=== PATIENT | male | born 1950 | race Caucasian/White ===

== ENCOUNTER 2016-12-25 05:34 | Outpatient (CLI) | payer BC ==
[~2016-12-25] VITALS: Ht 174 cm; Wt 74.8 kg
[2016-12-25] MEDS ORDERED: PANT40TA2 PO (11:27)
== END 2016-12-25 11:28 ==
LOC: PREOP 05:34
PROVIDERS: ATTEND Internal Medicine
DX: Z01.818 Encounter for other preprocedural examination (principal); Z12.11 Encounter for screening for malignant neoplasm of colon; K21.9 Gastro-esophageal reflux disease without esophagitis; R13.10 Dysphagia, unspecified

== ENCOUNTER 2016-12-27 07:11 | Day surgery (SDC) | payer BC ==
--- NOTE | 2016-11-03 15:41 | HISTORY AND PHYSICAL ---
DATE OF SERVICE: HISTORY OF PRESENT ILLNESS: The patient is a 66-year-old white male who presented to the office on 10/31/2016 for wellness evaluation. It had been 10 years since his last colonoscopy which was normal so he was set up for screening colonoscopy. He does report increased belching and palpitations associated with this, especially when he is full. If he eats smaller meals more frequently and does not 3-4 hours before bedtime symptoms are lessened. If he eats later at night he will wake up with belching and sensation of palpitations. He had had similar symptoms in the past that resolved after he underwent fundoplication in November 2014. Prior to that, he had undergone gastropexy due to a large hiatal hernia with either paraesophageal hernia or gastric volvulus. He had not required antacid therapy since the procedure and then had had resolution of the above symptoms up until several months ago. He has noted no bowel habit change. Has noted no bright red blood per rectum, melena and his weight has been stable. Appetite has been stable. PAST MEDICAL HISTORY: Other than that stated above is unremarkable. PAST SURGICAL HISTORY: As stated above as well as a left inguinal hernia repair in November of 2014 as well. FAMILY HISTORY: He is not aware of any family history of GI malignancy or polyps. SOCIAL HISTORY: He quit smoking many years ago with occasional social alcohol intake. He walks on a regular basis and is up to date on vaccinations except for flu shots. He previously has had Zostavax and Pneumovax. PHYSICAL EXAMINATION: GENERAL: Reveals a well appearing, normal weight white male in no acute distress. VITAL SIGNS: Blood pressure 136/80, weight is stable at 170 pounds. HEENT: Unremarkable. Ear canals are normal as are tympanic membranes. Head is normocephalic, atraumatic. NECK: Revealed no JVD, adenopathy or bruits. CARDIOVASCULAR: Regular rate and rhythm without murmur, S3 or S4. ABDOMEN: Soft, supple without mass, organomegaly or tenderness. RECTAL: Exam deferred to the time of colonoscopy. EXTREMITIES: Reveal no cyanosis, clubbing or edema. SKIN: Evaluation revealed no suspicious nevi. ASSESSMENT AND PLAN: Normal well male evaluation. We reviewed chemistry panel, lipid panel and PSA which are essentially normal with good cholesterol to HDL ratio of 3.2 and a high level of HDL at 71 with low triglyceride level of 99. He was set up for screening colonoscopy and diagnostic EGD on 11/15/2016. He was advised to initiate pantoprazole 40 mg daily as I suspect that he is having recurrent reflux symptoms which in this patient has presented with epigastric fullness and palpitation. If PPI therapy does not resolve his symptoms we will again look into cardiac issues. Job ID: [id number] DocumentID: [id number] Dictated Date: 11/03/2016 14:58:11 Coal Conveyor Operator Date: 11/03/2016 15:40:51 Dictated By: CORA ALLAN MD [facility]
--- NOTE | 2016-12-04 06:48 | HISTORY AND PHYSICAL ---
DATE OF SERVICE: DATE OF ADMISSION: 12/27/2016 ADDENDUM COLONOSCOPY HISTORY AND PHYSICAL HISTORY OF PRESENT ILLNESS: The patient is a gentleman who I initially saw on 10/31/2016 and was scheduled for colonoscopy within that month. He had to reschedule for 12/27/2016 and is being seen in the interim. He is also scheduled for EGD for diagnostic purposes. He has history of Jimmy fundoplication and has been having increased problems with dysphagia to solids only. He has had no melena or bright red blood per rectum or weight loss. He underwent laparoscopic Jimmy fundoplication in 11/2014. Previously he had had a large paraesophageal hernia with intermittent gastric volvulus. He has had some recurrence of dyspeptic symptoms as well as belching and chest pressure. He would also need a screening colonoscopy. In the interval since his last visit a month ago, he reports no change. He has no past cardiovascular or pulmonary history. PHYSICAL EXAMINATION: CHEST: Clear. CARDIOVASCULAR: Regular rate and rhythm without murmur, S3 or S4. ABDOMEN: Soft, supple without mass, organomegaly or tenderness. VITAL SIGNS: Blood pressure was 130/78 with a heart rate of 72 and regular. ASSESSMENT: The patient is set up for screening colonoscopy and diagnostic EGD for symptoms as noted above on 12/27/2016. He still has instructions and prescription for a Suprep kit. He will continue to avoid aspirin, nonsteroidal medication for at least 1 week prior to the procedure. Job ID: [id number] DocumentID: [id number] Dictated Date: 12/03/2016 21:07:39 Rn Surgical Pcu Date: 12/03/2016 22:03:12 Dictated By: CORA ALLAN MD
[~2016-12-27] VITALS: Ht 174 cm; Wt 74.8 kg
[~2016-12-27 07:11] MED LIST: PANT40TA2 PO
[2016-12-27] MEDS ORDERED: 1/2 NS IV SOLUTION 1,000 ML IV STA (07:19)
[2016-12-27] MEDS ORDERED: LIDOCAINE JELLY 2% (XYLOCAINE) 5 ML TUBE MM PRN (07:30)
[2016-12-27] MEDS ORDERED: HURRICAINE EXT TUBE (BENZOCAINE) XX PRN (07:30)
--- NOTE | 2016-12-27 07:36 | Pre-Op Note & Conscious Sedat ---
Pre-Operative Progress Note H&P Reviewed The H&P was reviewed, patient examined and no changes noted. Date H&P Reviewed: Dec 27, 2016 Time H&P Reviewed: 07:36 Conscious Sedation Pre-Proced ASA Class: 1 Airway Mallampati Classification: (makah appropriate class) I. II. III, IV Lungs Heart ASA score ASA 1: a normal healthy patient ASA 2: a patient with a mild systemic disease (mid diabetes, controlled hypertension, obesity ASA 3: a patient with a severe systemic disease that limits activity (angina , COPD, prior Myocardial infarction) ASA 4: a patient with an incapacitating disease that is a constant threat to life (CHF, renal failure) ASA 5: a moribund patient not expected to survive 24 hrs. (ruptured aneurysm) ASA 6: a declared brain patient whose organs are being harvested. For emergent operations, add the letter E after the classification Grade 1 Sedation Plan: Analgesia, Amnesia, Plan communicated to team members, Discussed options with patient/fam, Discussed risks with patient/fam Note The patient is an appropriate candidate to undergo the planned procedure, sedation, and anesthesia. The patient immediately re-assessed prior to indication. CORA ALLAN MD Dec 27, 2016 07:36
[2016-12-27] MEDS ORDERED: HURRICAINE EXT TUBE (BENZOCAINE) ONE (07:38)
[2016-12-27] MEDS ORDERED: LIDOCAINE JELLY 2% (XYLOCAINE) 5 ML TUBE ONE (07:38)
[2016-12-27] MEDS ORDERED: fentaNYL INJECTION 100 MCG/2 ML AMP ONE (07:38)
[2016-12-27] MEDS ORDERED: MIDAZOLAM 2 MG/2 ML (VERSED) VIAL ONE ×3 (07:38)
[2016-12-27] MEDS: fentaNYL INJECTION 100 MCG/2 ML AMP IVP PRN ×2 (07:53→08:15)
[2016-12-27] MEDS: MIDAZOLAM 2 MG/2 ML (VERSED) VIAL IVP PRN ×3 (07:55→08:27)
[2016-12-27 08:06] VITALS: BP 133/80
[2016-12-27 08:50] VITALS: BP 121/73
[2016-12-27 09:30] VITALS: BP 130/76
[2016-12-27 09:50] VITALS: BP 130/76
--- NOTE | 2016-12-27 18:28 | OPERATIVE REPORT ---
DATE OF SERVICE: PANENDOSCOPY SUMMARY Panendoscopy is performed for screening colonoscopy and diagnostic EGD due to dysphagia, previous history of gastropexy and Jimmy fundoplication. The patient was placed in the left lateral decubitus position. Prior to undergoing colonoscopy, digital rectal evaluation was performed. Prostate is unremarkable to digital inspection. No abnormalities, no additional inspection of anal canal or distal rectal vault. The colonoscope was then inserted into the rectum under direct visualization advanced to the cecum. The cecum was identified by identification of the ileocecal valve and cecal strap. Photographic documentation was obtained. Careful inspection was made as the colonoscope was withdrawn. The quality of the prep was good. FINDINGS: There is no evidence for external hemorrhoids. One small internal hemorrhoid complex was noted nonthrombosed. The rectum was unremarkable. Present at the rectosigmoid junction was a diminutive polyp which was biopsied and ablated and submitted for histopathology. There is no subsequent bleeding. Present in the proximal sigmoid colon were several diverticulum without evidence for diverticulitis. No other sigmoid abnormalities were appreciated. The descending colon, splenic flexure, transverse colon, hepatic flexure, ascending colon and cecum were unremarkable. ASSESSMENT: One diminutive polyp was removed from the rectosigmoid junction. Several small to medium size proximal sigmoid diverticulum were present without evidence for diverticulitis. As long as there are no surprises on histopathology, we will be abdicating consideration for repeat screening colonoscopy in 10 years. The patient is not aware of any family history for colon cancer. EGD evaluation was then performed. The endoscope was inserted in the oral cavity and under direct visualization, the esophagus was intubated. The endoscope was passed down the esophagus through the stomach and second portion of the duodenum. A careful inspection was made as the endoscope was withdrawn. FINDINGS: There was some tortuosity of the esophagus with a bend just proximal to the lower esophageal sphincter. No esophageal dilatation was noted.There are postoperative changes of gastropexy noted. Sutures still present with no surrounding ulceration or gastric erythema. There are postoperative changes of fundoplication intact. There was no evidence for erosive esophagitis with just a little more than average amount of pressure was able to easily traverse the lower esophageal sphincter area located at 41 cm from the incisoral orifice. No dilatation of the esophagus was noted The cardia, fundus and antrum of thestomach were unremarkable. The pylorus, the pyloric channel, the duodenal bulb and the second portion of duodenum were unremarkable as well. ASSESSMENT: Postoperative changes of gastropexy with fundoplication intact are noted. It is likely that the patient is having some pocketing of food in the distal esophagus, but it has been mild. It has caused him to eat more slowly, chew his food well and eat smaller amounts. There was no evidence to suggest erosive esophagitis. A biopsy from the Z-line was obtained as well as the antrum and submitted for histopathology. The patient was reassured and advised to continue current eating patterns with silver lining being that it forces him into a healthy lifestyle making it easier to maintain healthy weight. The patient voiced understanding and is agreeable. We will see him back for regular followup in 6 months. Job ID: [id number] DocumentID: [id number] Dictated Date: 12/27/2016 12:33:42 Snow Removal/Plowing Date: 12/27/2016 18:27:40 Dictated By: CORA ALLAN MD [facility]
== END 2016-12-27 09:50 | disposition home or self-care (01) ==
LOC: ENDO 07:11
PROVIDERS: ATTEND Internal Medicine
DX: Z12.11 Encounter for screening for malignant neoplasm of colon (principal); K62.1 Rectal polyp; K64.8 Other hemorrhoids; K57.30 Diverticulosis of large intestine without perforation or abscess without bleeding; R13.10 Dysphagia, unspecified; Z87.891 Personal history of nicotine dependence

== ENCOUNTER → 2018-03-17 | Outpatient (CLI) | payer BC ==
[~2018-03-17] MED LIST changes: +CATHETER FLUSH 10 ML SYR IV PRN; +DIATRIZOATE MEGLUM/SODIUM 37% 120 ML (GASTROGRAFIN) PO ONE; +IOHEXOL 350 MG/ML 100 ML (OMNIPAQUE 350) VIAL IV ONE; +NS 100 ML (IVPB) BAG IV ONE; +RECEIVED CONTRAST (Hold Metformin) IV SCH
--- NOTE | 2018-03-17 15:04 | Diagnostic Imaging Report ---
INDICATION: Prostate carcinoma. TECHNIQUE: Patient was administered 26.9 mCi technetium 99m MDP intravenously and whole-body imaging was performed after a three-hour delay. COMPARISON: No prior studies are available for comparison. FINDINGS: There is normal uptake of activity by the axial and appendicular skeleton. There is uptake by both kidneys with excretion into the urinary bladder. Mild uptake is identified at the first CMC joints of bilateral wrists compatible with degenerative change. Vague uptake involving left posterior approximately ninth rib is seen, indeterminate. No other suspicious foci are seen. IMPRESSION: Essentially unremarkable whole-body bone scan apart from minimal uptake involving left posterior approximately ninth rib. Continued followup is recommended. Dictated by: Dictated on workstation # [id number]
== END ==
LOC: CARD 10:38
PROVIDERS: ATTEND Urology
DX: C61 Malignant neoplasm of prostate (principal)
CPT/HCPCS: 78306

== ENCOUNTER 2018-08-12 05:36 | Outpatient (CLI) | payer BC ==
[~2018-08-12] VITALS: Ht 174 cm; Wt 79.4 kg
[~2018-08-12 05:36] MED LIST changes: -CATHETER FLUSH 10 ML SYR IV PRN; -DIATRIZOATE MEGLUM/SODIUM 37% 120 ML (GASTROGRAFIN) PO ONE; -IOHEXOL 350 MG/ML 100 ML (OMNIPAQUE 350) VIAL IV ONE; -NS 100 ML (IVPB) BAG IV ONE; -RECEIVED CONTRAST (Hold Metformin) IV SCH
[2018-08-12] MEDS ORDERED: PRED5TAB PO (12:04)
[2018-08-12] MEDS ORDERED: LEUP30KI IM (12:04)
[2018-08-12] MEDS ORDERED: [UNRECOGNIZED DRUG - OTHER] PO (12:04)
== END 2018-08-12 12:18 | disposition home or self-care (01) ==
LOC: PREOP 05:36
PROVIDERS: ATTEND Urology
DX: Z01.818 Encounter for other preprocedural examination (principal)

== ENCOUNTER 2018-08-19 06:04 | Day surgery (SDC) | payer BC ==
[~2018-08-19] VITALS: Ht 174 cm; Wt 78.5 kg
[2018-08-19] VITALS (8 sets, daily range): BP systolic 100–136; BP diastolic 61–84
[~2018-08-19 06:04] MED LIST changes: +LEUP30KI IM; +PRED5TAB PO; +[UNRECOGNIZED DRUG - OTHER] PO
--- OUTSIDE RECORDS SUMMARY | 2018-08-19 06:13 | XMS REPORT | Continuity of Care Document ---
Author Organization Unknown Address Unknown Allergies Active Description Code Type Severity Reaction Onset Reported/Identified Relationship to Patient Clinical Status Yes No Known Drug Allergies [id number] Drug Allergy Unknown N/A 08/12/2018 Medications There is no data. Problems Date Dx Coded Attending Type Code Diagnosis Diagnosed By 12/25/2016 CORA ALLAN MD Ot K21.9 GASTRO-ESOPHAGEAL REFLUX DISEASE WITHOUT 12/25/2016 CORA ALLAN MD Ot R13.10 DYSPHAGIA, UNSPECIFIED 12/25/2016 CORA ALLAN MD Ot Z01.818 ENCOUNTER FOR OTHER PREPROCEDURAL EXAMIN 12/25/2016 CORA ALLAN MD Ot Z12.11 ENCOUNTER FOR SCREENING FOR MALIGNANT NE 12/27/2016 CORA ALLAN MD Ot K57.30 DVRTCLOS OF LG INT W/O PERFORATION OR AB 12/27/2016 CORA ALLAN MD Ot K62.1 RECTAL POLYP 12/27/2016 CORA ALLAN MD Ot K64.8 OTHER HEMORRHOIDS 12/27/2016 CORA ALLAN MD Ot R13.10 DYSPHAGIA, UNSPECIFIED 12/27/2016 CORA ALLAN MD Ot Z12.11 ENCOUNTER FOR SCREENING FOR MALIGNANT NE 12/27/2016 CORA ALLAN MD Ot Z87.891 PERSONAL HISTORY OF NICOTINE DEPENDENCE 12/31/2016 CORA ALLAN MD Ot K21.9 GASTRO-ESOPHAGEAL REFLUX DISEASE WITHOUT 12/31/2016 CORA ALLAN MD Ot R13.10 DYSPHAGIA, UNSPECIFIED 12/31/2016 CORA ALLAN MD Ot Z01.818 ENCOUNTER FOR OTHER PREPROCEDURAL EXAMIN 12/31/2016 CORA ALLAN MD Ot Z12.11 ENCOUNTER FOR SCREENING FOR MALIGNANT NE 12/31/2016 CORA ALLAN MD Ot K57.30 DVRTCLOS OF LG INT W/O PERFORATION OR AB 12/31/2016 CORA ALLAN MD Ot K62.1 RECTAL POLYP 12/31/2016 CORA ALLAN MD Ot K64.8 OTHER HEMORRHOIDS 12/31/2016 CORA ALLAN MD Ot R13.10 DYSPHAGIA, UNSPECIFIED 12/31/2016 CORA ALLAN MD Ot Z12.11 ENCOUNTER FOR SCREENING FOR MALIGNANT NE 12/31/2016 CORA ALLAN MD Ot Z87.891 PERSONAL HISTORY OF NICOTINE DEPENDENCE 03/18/2018 KING PETERSEN MD Ot C61 MALIGNANT NEOPLASM OF PROSTATE 03/18/2018 KING PETERSEN MD Ot C61 MALIGNANT NEOPLASM OF PROSTATE 04/03/2018 KING PETERSEN MD Ot C61 MALIGNANT NEOPLASM OF PROSTATE 08/17/2018 KING PETERSEN MD Ot Z01.818 ENCOUNTER FOR OTHER PREPROCEDURAL EXAMIN Procedures There is no data. Results There is no data. Encounters ACCT No. Visit Date/Time Discharge Status Pt. Type Provider Facility Loc./Unit Complaint [id number] 08/12/2018 05:36:00 08/12/2018 12:18:00 DIS Outpatient KING PETERSEN MD [facility] PREOP PROSTATE CANCER [id number] 08/04/2018 14:01:00 08/04/2018 23:59:59 CLS Outpatient JONATAN PARRISH MD [facility] ONC [id number] 03/17/2018 10:38:00 03/17/2018 23:59:59 CLS Outpatient KING PETERSEN MD [facility] CARD PROSTATE CANCER [id number] 03/13/2018 10:57:00 03/13/2018 23:59:59 CLS Preadmit KING PETERSEN MD [facility] RAD PROSTATE CANCER [id number] 12/27/2016 07:11:00 12/27/2016 09:50:00 DIS Outpatient CORA ALLAN MD [facility] ENDO SCREENING/GERD AND DYSPHAGIA [id number] 12/25/2016 05:34:00 12/25/2016 11:28:00 DIS Outpatient CORA ALLAN MD [facility] PREOP SCREENING COLO/GERD/DYSPHAGIA [id number] 11/12/2016 10:30:00 11/12/2016 10:30:00 CAN Preadmit JERRELL MD, CORA Yousif [facility] PREOP COLONOSCOPY/EGD [id number] 08/19/2018 08:00:00 ALIAS PETERSEN MD, KING Bell [facility] PROSTATE CANCER
[2018-08-19] MEDS ORDERED: LACTATED RINGERS 1,000 ML IV PRN (06:14)
[2018-08-19] MEDS ORDERED: cefTRIAXone FOR IV USE 1,000 MG in WATER (STERILE) FOR INJECTION 10 ML IV ONE (06:15)
[2018-08-19] MEDS ORDERED: FLEET ENEMA ADULT 1 EA BTL PR ONE (06:45)
[2018-08-19] MEDS ORDERED: CATHETER FLUSH 10 ML SYR IV PRN (06:45)
[2018-08-19] MEDS ORDERED: ROCURONIUM 10 MG/ML 5 ML SYRINGE IV ONE (06:50)
[2018-08-19] MEDS ORDERED: MIDAZOLAM 2 MG/2 ML (VERSED) VIAL ONE (06:50)
[2018-08-19] MEDS ORDERED: fentaNYL INJECTION 100 MCG/2 ML AMP ONE (06:50)
[2018-08-19] MEDS ORDERED: LIDOCAINE PF 2% 5 ML (XYLOCAINE) VIAL ONE (06:50)
[2018-08-19] MEDS ORDERED: ONDANSETRON 4 MG/2 ML (SDV) Z0FRAN ONE (06:50)
[2018-08-19] MEDS ORDERED: proPOfol 200 MG/20 ML (DIPRIVAN) VIAL IV ONE (06:50)
--- NOTE | 2018-08-19 07:11 | Progress Note-Pre Operative ---
Pre-Operative Progress Note H&P Reviewed The H&P was reviewed, patient examined and no changes noted. Date Seen by Provider: Aug 19, 2018 Time Seen by Provider: 07:11 Date H&P Reviewed: Aug 19, 2018 Time H&P Reviewed: 07:11 Pre-Operative Diagnosis: CA PROSTATE KING PETERSEN MD Aug 19, 2018 07:11
--- NOTE | 2018-08-19 07:14 | Progress Note-Post Operative ---
Post-Operative Progess Note Surgeon (s)/Concrete Mixer Operator Helper (s) Surgeon KING PETERSEN MD Concrete Mixer Operator Helper: Soraya PARRISH Pre-Operative Diagnosis CA PROSTATE Post-Operative Diagnosis SAME Procedure & Operative Findings Date of Procedure 08/19/18 Procedure Performed/Findings PLACEMENT OF FIDUCIAL MARKERS AND SPACE OAR Anesthesia Type GENERAL Estimated Blood Loss Estimated blood loss (mL): NEGLIGIBLE Specimens/Packing Specimens Removed NONE Packing: NONE KING PETERSEN MD Aug 19, 2018 07:14
[2018-08-19] MEDS ORDERED: SEVOFLURANE (ULTANE) 15 ML INHAL SOLN ONE (08:18)
--- NOTE | 2018-08-19 08:54 | Discharge Inst-Urology ---
Discharge Inst-Urology Discharge Medications New, Converted, or Re-newed RX: RX on Chart Patient Instructions/Follow Up Plan Follow up appointment on 10/08 at 3:45am Keep bowels soft and moving Increase oral fluids for 48 hours and then as needed. Diet and Activity as tolerated. If questions or concerns contact your physician Or seek help at emergency department. KING PETERSEN MD Aug 19, 2018 08:54
[2018-08-19] MEDS ORDERED: CIPR-225 PO (08:57)
[2018-08-19] MEDS ORDERED: ONDANSETRON 4 MG/2 ML (SDV) Z0FRAN IVP PRN (09:00)
[2018-08-19] MEDS ORDERED: morphine INJ 10 MG/ML 1ML (SYR OR VIAL) IVP ONE (09:00)
--- NOTE | 2018-08-19 12:42 | Anesthesia-General Post-Op ---
General Patient Condition Mental Status/LOC: Same as Preop Cardiovascular: Satisfactory Nausea/Vomiting: Absent Respiratory: Satisfactory Pain: Controlled Complications: Absent Post Op Complications Complications None Follow Up Care/Instructions Patient Instructions None needed. Anesthesia/Patient Condition Patient Condition Patient is doing well, no complaints, stable vital signs, no apparent adverse anesthesia problems. No complications reported per nursing. KAM RAMOS CRNA Aug 19, 2018 12:42
== END 2018-08-19 10:30 | disposition home or self-care (01) ==
LOC: SDC 06:04
PROVIDERS: ATTEND Urology
DX: C61 Malignant neoplasm of prostate (principal); Z11.2 Encounter for screening for other bacterial diseases; K21.9 Gastro-esophageal reflux disease without esophagitis; K44.9 Diaphragmatic hernia without obstruction or gangrene; R01.1 Cardiac murmur, unspecified; Z87.891 Personal history of nicotine dependence; Z79.899 Other long term (current) drug therapy
CPT/HCPCS: 87081

== ENCOUNTER 2018-11-11 12:57 | Outpatient (RCR) | payer BC ==
[~2018-11-11 12:57] MED LIST changes: +CIPR-225 PO
== END 2019-02-01 | disposition home or self-care (01) ==
LOC: ONC 12:57
PROVIDERS: ATTEND Radiology Radiation Oncology
DX: Z51.0 Encounter for antineoplastic radiation therapy (principal); C61 Malignant neoplasm of prostate
CPT/HCPCS: 77336; 77385

== ENCOUNTER 2019-03-03 09:33 | Outpatient (RCR) | payer BC | END 2019-06-01 | disposition home or self-care (01) | LOC: ONC 09:33 | PROVIDERS: ATTEND Radiology Radiation Oncology | DX: C61 Malignant neoplasm of prostate (principal) | CPT/HCPCS: 99213 ==

== ENCOUNTER 2020-07-21 05:48 | Outpatient (CLI) | payer BC ==
[~2020-07-21] VITALS: Ht 172.7 cm; Wt 80.9 kg
[2020-07-21] MEDS ORDERED: LISI1TAB46 PO (10:22)
== END 2020-07-21 10:24 | disposition home or self-care (01) ==
LOC: PREOP 05:48
PROVIDERS: ATTEND Specialist
DX: Z01.818 Encounter for other preprocedural examination (principal)

== ENCOUNTER 2020-07-28 07:09 | Day surgery (SDC) | payer BC ==
[~2020-07-28] VITALS: Ht 172.7 cm; Wt 80.9 kg
[~2020-07-28 07:09] MED LIST changes: +LISI1TAB46 PO
--- NOTE | 2020-07-28 07:18 | Ophthalmologist Pre-Op Note ---
Pre-Operative Progress Note H&P Reviewed The H&P was reviewed, patient examined and no changes noted. Date H&P Reviewed: Jul 28, 2020 Time H&P Reviewed: 07:18 Pre-Op Dx Secondary Cataract, Bilateral Eyes OZZIE BENAVIDEZ MD Jul 28, 2020 07:18
[2020-07-28] MEDS ORDERED: PHENYLEPHRINE 10% OPHTH (NEO-SYN) 5 ML BTL OU PRN (07:30)
[2020-07-28] MEDS ORDERED: TROPICAMIDE 1% OPH SOLN (MYDRIACYL) 15 ML BTL OU PRN (07:30)
[2020-07-28] MEDS: TETRACAINE 0.5% OPHTH SOLN 4 ML BTL (SINGLE DOSE ONLY) OU PRN ×3 (07:36→07:45)
[2020-07-28 07:42] VITALS: BP 122/81
--- NOTE | 2020-07-28 08:39 | Ophthalmology Operative Report ---
YAG Capsulotomy PREOPERATIVE DIAGNOSIS: Secondary Cataract Bilateral POSTOPERATIVE DIAGNOSIS: Secondary Cataract Bilateral PROCEDURE: YAG Capsulotomy, Bilateral SURGEON: Messi Benavidez ANESTHESIA: Topical anesthesia COMPLICATIONS: None ESTIMATED BLOOD LOSS: Minimal DESCRIPTION OF PROCEDURE: After proper informed consent was obtained, the patient's, a 70 male , received one drop of Tropicamide and one drop of Tetracaine in each eye. The patient was then placed at the YAG laser and using a power of [3.6 ] millijoules and bursts [ 17] right eye and [ 19] left eye were used to fashion a central capsulotomy. The patient tolerated the procedure well without complications. MESSI BENAVIDEZ MD Jul 28, 2020 08:39
== END 2020-07-28 08:25 ==
LOC: SDC 07:09
PROVIDERS: ATTEND Specialist
DX: H26.493 Other secondary cataract, bilateral (principal)

== ENCOUNTER 2021-09-27 11:53 | Outpatient (CLI) | payer BC ==
[~2021-09-27] VITALS: Ht 172.7 cm; Wt 84.8 kg
[2021-09-27] MEDS ORDERED: LOSA1TAB20 PO (13:34)
== END 2021-09-27 13:52 | disposition home or self-care (01) ==
LOC: PREOP 11:53
PROVIDERS: ATTEND Internal Medicine
DX: Z01.818 Encounter for other preprocedural examination (principal)

== ENCOUNTER 2021-10-05 07:51 | Day surgery (SDC) | payer BC ==
[~2021-10-05] VITALS: Ht 172.7 cm; Wt 84.8 kg
[~2021-10-05 07:51] MED LIST changes: +LOSA1TAB20 PO
[2021-10-05 08:00] VITALS: BP 129/77
[2021-10-05] MEDS ORDERED: LACTATED RINGERS 1,000 ML IV ONE (08:04)
[2021-10-05] MEDS ORDERED: LACTATED RINGERS 1,000 ML IV STA (08:12)
[2021-10-05] MEDS ORDERED: HURRICAINE EXT TUBE (BENZOCAINE) XX PRN (08:15)
--- NOTE | 2021-10-05 08:18 | Pre-Op Note & Conscious Sedat ---
Pre-Operative Progress Note Date H&P Reviewed: Oct 05, 2021 Time H&P Reviewed: 08:17 History & Physical: H&P Reviewed, Patient Examed, No changes noted Pre-Op Diagnosis: screening colon and egd for Gerd and dysphagia Conscious Sedation Pre-Proced ASA Score 2 For ASA 3 and 4: Consider anesthesia and medical clearance. Also, for patients with a history of failed moderate sedation consider anesthesia. Airway Lungs Heart ASA score ASA 1: a normal healthy patient ASA 2: a patient with a mild systemic disease (mid diabetes, controlled hypertension, obesity ASA 3: a patient with a severe systemic disease that limits activity (angina, COPD, prior Myocardial infarction) ASA 4: a patient with an incapacitating disease that is a constant threat to life (CHF, renal failure) ASA 5: a moribund patient not expected to survive 24 hrs. (ruptured aneurysm) ASA 6: a declared brain- patient whose organs are being harvested. For emergent operations, add the letter E after the classification Mallampati Classification Grade 1 Sedation Plan Analgesia, Amnesia, Plan communicated to team members, Discussed options with patient/fam, Discussed risks with patient/fam The patient is an appropriate candidate to undergo the planned procedure, sedation, and anesthesia. The patient immediately re-assessed prior to indication. CORA ALLAN MD Oct 05, 2021 08:18
[2021-10-05] MEDS ORDERED: PROPOFOL INJECTION 50 ML IV ONE (08:35)
[2021-10-05] MEDS ORDERED: proPOfol 200 MG/20 ML (DIPRIVAN) VIAL IV ONE (09:01)
[2021-10-05 09:20] VITALS: BP 83/51
[2021-10-05 09:25] VITALS: BP 122/53
[2021-10-05 09:45] VITALS: BP 131/83
[2021-10-05 10:01] VITALS: BP 131/83
--- NOTE | 2021-10-05 10:07 | Progress Note-Post Operative ---
Post-Procedure Note Physician (s)/Brassiere Cup Mold Cutter (s) Physician CORA ALLAN MD Pre-Procedure Diagnosis Pre-Procedure Diagnosis: screening colon and egd for Gerd and dysphagia Post-Procedure Diagnosis Post-operative diagnosis: post gastropexy edg otherwise normal with one colon polyp ablated from the proximal transverse colon otherwise normal CORA ALLAN MD Oct 05, 2021 10:07
--- NOTE | 2021-10-05 10:48 | OPERATIVE REPORT ---
DATE OF SERVICE: PANENDOSCOPY SUMMARY INDICATION FOR THE PROCEDURE: The patient underwent screening colonoscopy and diagnostic EGD, history of intermittent dysphagia, large hiatal hernia requiring past gastropexy with reflux symptoms. DESCRIPTION OF PROCEDURE: The patient was placed in a left lateral decubitus position. The endoscope was inserted in the oral cavity and under direct visualization, the esophagus was intubated. The endoscope was passed down the esophagus through the stomach and the second portion of the duodenum. A careful inspection was made as the endoscope was withdrawn. FINDINGS: Proximal, mid and distal esophagus revealed no evidence for erosive esophagitis. There is some mild erythema at the Z-line. No changes to suggest Price's, rings, webs or strictures. There was some deformity of the stomach compatible with an intact gastropexy. One fundal appearing polyp was noted in the mid fundus. Stomach was unremarkable otherwise. No evidence for gastritis was noted. The pylorus, pyloric channel, duodenal bulb and second portion of the duodenum were unremarkable. ASSESSMENT: Findings were compatible with an intact gastropexy with a secondary gastric deformity. No evidence for erosive esophagitis, rings, webs or strictures were noted. We then proceeded with screening colonoscopy. DESCRIPTION OF PROCEDURE: The patient was placed in the left lateral decubitus position. Prior to undergoing colonoscopy, digital rectal evaluation was performed. The patient has a history of prostatectomy. The prostatic bed was unremarkable with no palpable tissue or nodules being noted. No other abnormalities were noted on digital inspection of the anal canal or distal rectal vault. The colonoscope was then inserted into the rectum and under direct visualization advanced to the cecum. The cecum was identified by identification of the ileocecal valve and ileocecal strap. Photographic documentation was obtained. A careful inspection was made as the colonoscope was withdrawn. FINDINGS: There was no evidence for internal or external hemorrhoids. Findings were compatible with mild radiation proctitis were noted with no evidence for ulceration. Several small telangiectatic blood vessels in the anal canal and distal rectum. The sigmoid colon, descending colon, and splenic flexure were unremarkable. Present in the proximal transverse colon was a 3 mm sessile hyperplastic-appearing polyp. It was biopsied and ablated with hot forceps with no subsequent blood loss. The hepatic flexure, ascending colon, and cecum were unremarkable. Quality of the prep was good. One diminutive polyp was removed via hot forceps from the proximal transverse colon. No evidence for diverticular disease was noted. Findings compatible with mild radiation proctitis were noted. No other abnormalities were appreciated. As long as there are no surprises on histopathology report, we will be advocating consideration for repeat screening colonoscopy in 10 years. Job ID: [id number] DocumentID: [id number] Dictated Date: 10/05/2021 09:20:39 Cloth Sponger Date: 10/05/2021 10:47:48 Dictated By: CORA ALLAN MD
--- NOTE | 2021-10-05 12:30 | Anesthesia-General Post-Op ---
MAC Patient Condition Mental Status/LOC: Same as Preop Cardiovascular: Satisfactory Nausea/Vomiting: Absent Respiratory: Satisfactory Pain: Controlled Complications: Absent Post Op Complications Complications None Follow Up Care/Instructions Patient Instructions None needed. Anesthesiology Discharge Order Discharge Order Patient is doing well, no complaints, stable vital signs, no apparent adverse anesthesia problems. No complications reported per nursing. VASQUEZ SHEPHERD CRNA Oct 05, 2021 12:30
== END 2021-10-05 10:00 | disposition home or self-care (01) ==
LOC: ENDO 07:51
PROVIDERS: ATTEND Internal Medicine
DX: Z12.11 Encounter for screening for malignant neoplasm of colon (principal); K62.7 Radiation proctitis; K63.5 Polyp of colon; Z87.891 Personal history of nicotine dependence; K21.9 Gastro-esophageal reflux disease without esophagitis

== ENCOUNTER → 2022-07-19 | Outpatient (CLI) | payer BC ==
--- NOTE | 2022-07-19 12:34 | Diagnostic Imaging Report ---
INDICATION: PERSISTENT COUGH COMPARISON: CT abdomen and pelvis dated 03/17/2018. FINDINGS: Frontal and lateral views of the chest demonstrate normal heart size and pulmonary vascularity. The lungs are clear. There are no signs of infiltrate, pleural effusions or pneumothoraces. Calcified granuloma is noted within the right lung base. The visualized osseous structures show no acute abnormalities. IMPRESSION: 1. No acute process. No signs of infiltrates, effusions or pneumothoraces. Dictated by: Dictated on workstation # [id number]
== END ==
LOC: RAD 11:48
PROVIDERS: ATTEND Nurse Practitioner Family
DX: R05.9 Cough, unspecified (principal)
CPT/HCPCS: 71046